=== PATIENT | male | born 1985 | race African-American/Black ===

== ENCOUNTER 2018-04-08 10:20 | Emergency (ER) | payer OTHER, MEDICAID ==
[~2018-04-08] VITALS: Ht 182.9 cm; Wt 147.4 kg
[2018-04-08 10:32] VITALS: Ht 182.9 cm; Wt 147.4 kg
[2018-04-08 11:06] LABS: RED CELL DISTRIBUTION WIDTH 13.2 % (11.5-14.5)
[2018-04-08 11:09] LABS: BASOPHIL % 0.2 % (0-2); PLATELET COUNT 288 x10^3mcL (130-400)
[2018-04-08 11:32] LABS: CALCIUM 8.8 mg/dL (8.5-10.1); CARBON DIOXIDE 24.9 mmol/L (21-32); CHLORIDE SERUM 106 mmol/L (98-107); GFR1 > 60 mL/min; GLUCOSE SERUM 113 mg/dL (74-106); POTASSIUM SERUM 3.9 mmol/L (3.5-5.1); SODIUM SERUM 144 mmol/L (136-145)
[2018-04-08 11:35] LABS: microscopic required? NO
[2018-04-08 11:37] LABS: ALKALINE PHOSPHATASE 115 U/L (46-116); ALT/SGPT 69 U/L (16-63); AST/SGOT 25 U/L (15-37); BILIRUBIN TOTAL 0.39 mg/dL (0.20-1.00); LIPASE 116 IU/L (73-393); TOTAL PROTEIN, SERUM 7.9 g/dL (6.4-8.2)
[2018-04-08 11:48] LABS: urine erythrocyte NEGATIVE (NEGATIVE)
[2018-04-08 12:05] LABS: AMPHETAMINE QUAL UR NONE DETECTED (See below)
[2018-04-08 13:47] VITALS: BP 151/61
== END 2018-04-08 13:42 | disposition home or self-care (01) ==
LOC: ED 10:20
PROVIDERS: Emergency Medicine
DX: R11.2 Nausea with vomiting, unspecified (principal); R10.13 Epigastric pain
CPT/HCPCS: J1885; J2405; J3010; J7030